=== PATIENT | female | born 1980 | race Caucasian/White ===

== ENCOUNTER 2018-01-05 20:10 | Emergency (ER) | payer SELFPAY ==
[2018-01-05 20:11] VITALS: BP 140/85; PULSE 90; RESP 14; TEMP 36.9; O2SAT 99; BMI 26.8
[2018-01-05] MEDS: 0.9% Normal Saline 1,000 ML 1000 ML IV (21:11)
[2018-01-05] MEDS: proCHLORPERazine 10 MG/2 ML Vial IV (21:11)
[2018-01-05] MEDS: DiphenhydrAMINE 50 MG/ML Syringe 25 MG IV (21:11)
[2018-01-05 21:19] LABS: Absolute Lymphocyte Count 2.61 X10^3/ul (0.83-4.51); Absolute Neutrophil Count 4.9 X10^3/uL (2.0-7.7); Basophil# 0.04 X10^3/uL; Basophil% 0.4 % (0-1); Eosinophil# 0.52 X10^3/uL; Eosinophils% 5.7 % (0-5); Hematocrit 36.9 % (37-47); Hemoglobin 12.1 g/dl (12.0-15.0); Lymphocyte # 2.61 X10^3/ul (4.0); Lymphocyte % 28.6 % (19-41); Mean Corp Hgb Conc 32.8 g/gl (32-36); Mean Corpuscular Hgb 29.5 pg (27.0-32.0); Mean Platelet Vol. 10.9 fl (6.2-12.0); Monocyte# 1.08 X10^3/uL; Monocyte% 11.8 % (0-10); Neutrophil # 4.86 X10^3/uL (2.7-7.7); Neutrophil % 53.3 % (47-70); Platelet Count 215 K/mm3 (150-450); RBC Distribution Width CV 13.5 % (11.6-14.6); RBC Distribution Width SD 44.2 fl (35.1-43.9); White Blood Count 9.1 K/mm3 (4.4-11.0)
[2018-01-05 21:21] LABS: POSITIVE COUNT NO; POSITIVE DIFFERENTIAL NO; POSITIVE MORPHOLOGY NO
--- NOTE | 2018-01-05 21:26 | CT_ITS ---
STUDY: CT BRAIN WITHOUT CONTRAST REASON FOR EXAM: Female, 37 years old. Headache RADIATION DOSAGE (If Supplied By Facility): CTDIvol = ( 44.99 ) mGy, DLP = ( 765.18 ) mGycm TECHNIQUE: Transaxial CT imaging of the brain was performed without administration of intravenous contrast material. Individualized dose optimization techniques were used for this CT. COMPARISON: None. FINDINGS: Normal soft tissue structures. Normal calvarium. Normal size ventricles and extra-axial spaces for the patient's age. Normal white matter tracts of the cerebral hemispheres. Normal basal ganglia and thalami. Normal brainstem. Normal cerebellum. There is no intracranial hemorrhage. There are no findings of an acute ischemic infarction. Normal visualized paranasal sinuses. CT/Brain/Head without Contrast IMPRESSION: Normal unenhanced CT scan of the brain. Electronically Signed: Logan Downey DO at 22:10 EDT Tel [phone], Service support ,
[2018-01-05 21:40] LABS: Anion Gap 6 (5-15); BUN 14 mg/dL (7-18); BUN/Creat Ratio 14.6 RATIO (10-20); Calcium,Total 8.1 mg/dL (8.5-10.1); Chloride 110 mmol/L (98-107); Creatinine, Serum 0.96 mg/dL (0.55-1.02); EST Glomerular Filtration Rate 70 mL/min (>60); Est Glom Filt Rate - Afr Amer 85 mL/min (>60); Estimated Creatinine Clearance 78.78 ml/min; Glucose 88 mg/dL (74-106); Sodium Level 145 mmol/L (136-145)
[2018-01-05 21:42] LABS: Acetaminophen (Tylenol) Level 17.3 ug/mL (10.0-30.0); Salicylate 2.4 mg/dL (2.8-20.0)
--- NOTE | 2018-01-05 22:59 | ED.DCSUM_ITS ---
- ER Visit Summary Date of Service: 01/05/18 Chief Complaint: Headache History of Present Illness: The patient is a 37 F reports headache for the past 1 month. Patient states she was seen at urgent care at the onset of her headache was told she likely a sinus infection that would run its course. She states any congestion type symptoms she was having at that time has improved. She has been running intermittent fever, last one 4 days ago. Patient states she has pain around the left caodaism area as well as over the occiput. She gets occasional blurry vision when her occiput area is painful. She reports occasional light sensitivity and occasional nausea and vomiting. Patient states she has been taking ibuprofen and Tylenol stating that she started to get abdominal pain and dark stools now. Prior to arrival she took 5-7 tabs of Aleve and Tylenol. Physical Examination: Vital signs unremarkable. Patient's lying in a darkened room. She is nontoxic appearing. Head neck examination reveals no focal tenderness of the temporal arteries. She has no meningismus. Heart is regular rate and rhythm. No lung sounds are clear. Abdomen is soft with no focal tenderness on exam. Neuro exam reveals normal strength and sensation throughout. Test Results: CT head is unremarkable. CBC and chemistry studies normal. Acetaminophen and salicylate levels were obtained and unremarkable. Emergency Department Course and Treatment: Patient did have anti-inflammatories prior to arrival. She was given IV Compazine, Benadryl, and IV fluids here. On repeat evaluation she does report significant improvement in her headache. She is given a prescription for Compazine and Benadryl that she can take at home if needed. She is given phone number for neurology follow-up of her headaches continue. Treatment Plan: [] Disposition: Discharge Impression: Cephalgia, improved This note was generated with [employer] dictation software. It may contain incorrect words, spelling, and punctuation that were not noted in review of the chart prior to signing ED Disposition - Plan for ED Patient: Disposition: Home or Assisted Living Chief Complaint: Headache Instructions: ED Cephalgia Unspecified Prescriptions: Prochlorperazine Maleate [Compazine] 10 mg PO Q8H PRN PRN #10 tablet PRN Reason: Migraine Symptoms DiphenhydrAMINE [Benadryl] 50 mg PO TID PRN PRN #10 capsule PRN Reason: Migraine Symptoms Referrals: Srikanth Hollis DO [Primary Care Provider] - Emeka Gomez MD [STAFF PHYSICIAN] - As Needed
[2018-01-05 23:10] VITALS: BP 129/80; PULSE 65; RESP 16; O2SAT 97
== END 2018-01-05 23:12 | disposition home or self-care (01) ==
PROVIDERS: Emergency Provider Emergency Medicine; Family Provider Student in an Organized Health Care Education/Training Program; PCP Student in an Organized Health Care Education/Training Program
DX: R51 Headache (principal); Z72.0 Tobacco use
CPT/HCPCS: 70450; 80048; 80329; 85025; 96374; 96375; 99283; J7030; A4216; G0480